=== PATIENT | female | born 1975 | race Caucasian/White ===

== ENCOUNTER 2016-10-29 17:54 | Emergency (ER) | payer MEDICAID ==
[2016-10-29 18:06] VITALS: BP 102/57; PULSE 94; TEMP 97.8; BMI 22.6
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
[2016-10-29] MEDS ORDERED: OXYCODONE HCL 5 MG TABLET PO ONE (18:41)
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
== END 2016-10-29 19:00 | disposition home or self-care (01) ==
LOC: ED 17:54 → EDMC 19:00
DX: S60.222A Contusion of left hand, initial encounter (principal); W22.8XXA Striking against or struck by other objects, initial encounter; Y93.9 Activity, unspecified
CPT/HCPCS: 73130; 99282; J3490